=== PATIENT | female | born 1975 ===

== ENCOUNTER 2016-10-17 09:13 | Emergency (ER) | payer OTHER ==
[2016-10-17 09:32] VITALS: TEMP 98.3
[2016-10-17 11:00] LABS: BASO # 0.1 K/uL (0.0-0.2); EOS # 0.2 K/uL (0.0-0.7); EOS % 1.7 % (0.0-4.0); LYMPH # 2.1 K/uL (1.0-4.3); LYMPH % 21.5 % (20.0-40.0); MEAN CELL VOLUME 92.5 fL (81.0-99.0); MEAN CORPUSCULAR HEMOGLOBIN 30.6 pg (27.0-31.0); MEAN CORPUSCULAR HGB CONC 33.1 g/dL (33.0-37.0); MEAN PLATELET VOLUME 9.1 fL (7.2-11.7); MONO # 0.5 K/uL (0.0-0.8); MONO % 5.4 % (0.0-10.0); RED CELL DISTRIBUTION WIDTH 13.4 % (11.5-14.5); WHITE BLOOD COUNT 9.8 K/uL (4.8-10.8)
[2016-10-17] MEDS ORDERED: Morphine 4 MG/ML VIAL ONE (11:06)
[2016-10-17 11:09] LABS: RBC URINE < 1 /hpf (0-3); URINE BILIRUBIN NEGATIVE (NEGATIVE); URINE BLOOD 1+ (NEGATIVE); URINE COLOR Yellow (YELLOW); URINE GLUCOSE (UA) NORMAL (Normal); URINE KETONE NEGATIVE (NEGATIVE); URINE LEUKOCYTE ESTERASE NEG Leu/uL (Negative); URINE PROTEIN NEGATIVE (NEGATIVE); URINE UROBILINOGEN NORMAL mg/dL (0.2-1.0); WBC URINE 1 /hpf (0-5)
[2016-10-17 11:15] LABS: CHLORIDE 100 mmol/L (98-107); POTASSIUM 3.4 mmol/L (3.6-5.2); SODIUM 142 mmol/L (132-148)
--- NOTE | 2016-10-17 11:15 | C.PDOC ---
History Of Present Illness 41 year old female with a history of asthma, presents to the ED with complaints of mid-right lateral abdominal pain. Patient states the pain radiates to her right shoulder, right arm, and right foot and notes it is worse with movement and coughing. She reports she took an unknown medication this morning at home with no relief and also states her breathing has been a little worse lately. Denies nausea, vomiting, urinary symptoms, or any other complaints at this time. Time Seen by Provider: 10/17/16 10:39 Chief Complaint (Nursing): Back Pain History Per: Patient History/Exam Limitations: no limitations Onset/Duration Of Symptoms: Days Current Symptoms Are (Timing): Still Present Quality Of Discomfort: "Pain" Severity: Mild Associated Symptoms: None Exacerbating Factor(s): Movement Past Medical History Reviewed: Historical Data, Nursing Documentation, Vital Signs Vital Signs: Last Vital Signs Temp 98.3 F 10/17/16 09:31 Pulse 94 H 10/17/16 16:44 Resp 18 10/17/16 17:33 BP 129/80 10/17/16 16:44 Pulse Ox 95 10/17/16 17:23 - Medical History PMH: Asthma Family History: States: Unknown Family Hx - Social History Hx Alcohol Use: No Hx Substance Use: No - Immunization History Hx Tetanus Toxoid Vaccination: No Hx Influenza Vaccination: No Hx Pneumococcal Vaccination: No Review Of Systems Except As Marked, All Systems Reviewed And Found Negative. Constitutional: Negative for: Fever, Chills Cardiovascular: Negative for: Chest Pain Gastrointestinal: Positive for: Abdominal Pain (+Radiating to right shoulder, arm, and foot.). Negative for: Nausea, Vomiting Genitourinary: Negative for: Dysuria, Frequency Musculoskeletal: Negative for: Back Pain Physical Exam - Physical Exam Appears: Non-toxic, No Acute Distress Skin: Normal Color, Warm, Dry Head: Atraumatic, Normacephalic Eye(s): bilateral: Normal Inspection Oral Mucosa: Moist Chest: Symmetrical Cardiovascular: Rhythm Regular, No Murmur Respiratory: Decreased Breath Sounds (Decreased breath sounds to both lung salazar), No Accessory Muscle Use, No Rales, No Rhonchi, Wheezing Gastrointestinal/Abdominal: Soft, Tenderness (+RUQ tenderness), No Distention, Guarding, No Rebound Back: No CVA Tenderness Extremity: Normal ROM Neurological/Psych: Oriented x3, Normal Speech, Normal Cognition ED Course And Treatment - Laboratory Results Result Diagrams: 10/17/16 10:53 10/17/16 10:53 O2 Sat by Pulse Oximetry: 95 (Room air) Pulse Ox Interpretation: Normal - CT Scan/US Abdomen Limited US Other Rad Studies (CT/US): Read By Radiologist, Radiology Report Reviewed CT/US Interpretation: IMPRESSION: Mild hepatomegaly with mild diffuse fatty infiltration of the liver. No evidence of cholelithiasis or cholecystitis. CT ABD & Pelvis w/contrast Other Rad Studies (CT/US): Read By Radiologist, Radiology Report Reviewed CT/US Interpretation: IMPRESSION: No evidence of appendicitis. Mild fatty infiltration of the liver. 6 mm nodule along right major fissure, in anterior right lower lobe, most likely intrapulmonary lymph node. Followup noncontrast chest CT examination 6-12 months advised. 5 mm nodule left lower lobe. No other significant abnormality. Progress Note: Abdomen Limited US, EKG, Blood work, and Urinalysis ordered and reviewed. Patient treated with Morphine, Pepcid, and Toradol. Disposition Counseled Patient/Family Regarding: Diagnosis, Need For Followup - Disposition Referrals: at [facility] [Outside] Disposition: HOME/ ROUTINE Disposition Time: 17:20 Condition: GOOD Additional Instructions: Follow up with PMD or our clinic Prescriptions: Cyclobenzaprine [Cyclobenzaprine HCl] 1 tab PO Q8H PRN #14 tab PRN Reason: Muscle Spasm Polyethylene Glycol 3350 [Miralax] 17 gm PO DAILY PRN #500 g PRN Reason: Constipation Naproxen [Naprosyn] 1 tab PO BID PRN #25 tab PRN Reason: Pain Albuterol HFA [Ventolin HFA 90 mcg/actuation (8 g)] 1 puff IH QID PRN #1 puff PRN Reason: Cough Instructions: Muscle Strain (ED), Constipation (ED) - Clinical Impression Clinical Impression: Muscle strain, Constipated - Scribe Statement The provider has reviewed the documentation as recorded by the Scribe Carolyn Penaloza. Provider Attestation: All medical record entries made by the Scribe were at my direction and personally dictated by me. I have reviewed the chart and agree that the record accurately reflects my personal performance of the history, physical exam, medical decision making, and the department course for this patient. I have also personally directed, reviewed, and agree with the discharge instructions and disposition.
[2016-10-17 11:17] LABS: ALB/GLOB RATIO 0.9 (1.0-2.1); ALKALINE PHOSPHATASE 61 U/L (38-126); AST/SGOT 27 U/L (14-36); BILIRUBIN,TOTAL 0.5 mg/dL (0.2-1.3); BLOOD UREA NITROGEN 4 mg/dL (7-17); CARBON DIOXIDE 28 mmol/L (22-30); GFR AFRICAN-AMERICAN > 60; TOTAL PROTEIN 7.9 g/dL (6.3-8.3)
[2016-10-17 11:18] LABS: ALT/SGPT 36 U/L (9-52); CALCIUM 8.4 mg/dl (8.6-10.4); GLUCOSE,RANDOM 186 mg/dL (65-105)
--- NOTE | 2016-10-17 12:04 | US ---
HISTORY: RUQ R Flank abd pain COMPARISON: None. TECHNIQUE: Sonographic evaluation of the right upper quadrant of the abdomen. FINDINGS: LIVER: Measures 18.6 cm in length. Mildly increased echogenicity of the liver parenchyma. Consistent with mild diffuse fatty infiltration. Smooth contour. No mass. No biliary ductal dilatation. GALLBLADDER: Unremarkable. No gallstones. COMMON BILE DUCT: Measures 4 mm. No stones. No dilatation. PANCREAS: Unremarkable as visualized. No mass. No ductal dilatation. RIGHT KIDNEY: Measures 11.0 cm in length. Normal echogenicity. No calculus, mass, or hydronephrosis. AORTA: No aneurysmal dilatation. IVC: Unremarkable. OTHER FINDINGS: None . IMPRESSION: Mild hepatomegaly with mild diffuse fatty infiltration of the liver. No evidence of cholelithiasis or cholecystitis.
--- NOTE | 2016-10-17 14:25 | RAD ---
Abdomen two views History: Abdominal pain. Comparison: None available. Findings: Moderate fecal retention in the colon. Few minimally distended loops of small bowel in the right vida abdomen. Impression: Nonspecific bowel gas pattern with fecal retention in the colon.
[2016-10-17] MEDS ORDERED: Iohexol 240 (50 ml) ONE (14:44)
[2016-10-17] MEDS ORDERED: Iohexol 240 (50 ml) PO ONE (14:45)
[2016-10-17] MEDS ORDERED: Iodixanol 320 MG/ML 100 ML BOTTLE IV ONE (16:06)
[2016-10-17 16:44] VITALS: BP 129/80; PULSE 94
--- NOTE | 2016-10-17 16:57 | CT ---
PROCEDURE: CT Abdomen and Pelvis with contrast HISTORY: Abd Pain right flank r/o ap COMPARISON: None. TECHNIQUE: Contrast dose: 100 mL Visipaque 320 Radiation dose: Total exam DLP = 925.44 mGy-cm. FINDINGS: LOWER THORAX: No infiltrate. 5 mm nodule left lower lobe. 6 mm nodule along the right major fissure in the anterior right lower lobe, most likely intrapulmonary lymph node. Suggest follow-up noncontrast chest CT examination in 6-12 months. . LIVER: Normal size and contour. Mildly diminished attenuation, diffusely, consistent with fatty infiltration. No mass. No biliary ductal dilatation. GALLBLADDER AND BILE DUCTS: Unremarkable. PANCREAS: Unremarkable. No gross lesion or ductal dilatation. SPLEEN: Unremarkable. ADRENALS: Unremarkable. No mass. KIDNEYS AND URETERS: Unremarkable. No hydronephrosis. No solid mass. VASCULATURE: Unremarkable. No aortic aneurysm. BOWEL: Unremarkable. No obstruction. No gross mural thickening. APPENDIX: Normal appendix. PERITONEUM: Unremarkable. No free fluid. No free air. LYMPH NODES: Unremarkable. No enlarged lymph nodes. BLADDER: Unremarkable. REPRODUCTIVE: Normal uterus. Unremarkable adnexae. BONES: No acute fracture. OTHER FINDINGS: None. IMPRESSION: No evidence of appendicitis. Mild fatty infiltration of the liver. 6 mm nodule along right major fissure, in anterior right lower lobe, most likely intrapulmonary lymph node. Followup noncontrast chest CT examination 6-12 months advised. 5 mm nodule left lower lobe. No other significant abnormality.
[2016-10-17 17:23] VITALS: O2SAT 95
[2016-10-17 17:34] VITALS: RESP 18
--- NOTE | 2016-10-18 10:48 | CARD ---
APPROVED REPORT EKG Measurement Heart [id number] <Conclusion> Normal sinus rhythm Nonspecific T wave abnormality Abnormal ECG
== END 2016-10-17 17:34 | disposition home or self-care (01) ==
LOC: C.ER 09:13
DX: S39.011A Strain of muscle, fascia and tendon of abdomen, initial encounter (principal); X58.XXXA Exposure to other specified factors, initial encounter; K59.00 Constipation, unspecified
CPT/HCPCS: 74000; 74177; 76705; 80053; 81001; 83690; 85025; 93005; 96374; 96375; 99285; J1885; J2270; Q9966; Q9967